=== PATIENT | male | born 1950 | race Caucasian/White ===

== ENCOUNTER 2018-11-05 11:16 | Emergency (ER) | payer MEDICARE ==
[~2018-11-05] VITALS: Ht 170.2 cm; Wt 59.9 kg
[2018-11-05] MEDS ORDERED: LOSARTAN POTASS50 MG PO (12:03)
[2018-11-05] MEDS ORDERED: Lisinopril2.5 MG PO (12:05)
[2018-11-05] MEDS ORDERED: Fish Oil 10001000 MG PO (12:06)
[2018-11-05 12:48] LABS: BASOPHILS ABSOLUTE AUTO 0.04 K/mm3 (0.00-0.23); BASOPHILS PERCENT AUTO 1 % (0-2); EOSINOPHILS ABSOLUTE AUTO 0.07 K/mm3 (0.00-0.68); EOSINOPHILS PERCENT AUTO 1 % (0-6); Hematocrit 44.7 % (37.0-53.0); Hemoglobin 14.9 g/dL (13.5-17.5); IMMATURE GRAN ABSOLUTE AUTO 0.01 K/mm3 (0.00-0.10); IMMATURE GRAN PERCENT AUTO 0 % (0-1); LYMPHOCYTES ABSOLUTE AUTO 1.24 K/mm3 (0.84-5.20); LYMPHOCYTES PERCENT AUTO 22 % (21-46); MONOCYTES ABSOLUTE AUTO 0.51 K/mm3 (0.16-1.47); MONOCYTES PERCENT AUTO 9 % (4-13); Mean Corpuscular HGB 29.8 pg (26.0-34.0); Mean Corpuscular HGB Conc 33.3 g/dL (31.5-36.5); Mean Corpuscular Volume 89 fL (80-100); Mean Platelet Volume 9.1 fL (9.1-12.4); NEUTROPHILS ABSOLUTE AUTO 3.67 K/mm3 (1.96-9.15); NEUTROPHILS PERCENT AUTO 66 % (41-73); Platelet Count 296 K/mm3 (150-400); RDW Coefficient Variation 14.4 % (11.7-14.2); RDW Standard Deviation 47.1 fL (35.1-46.3); White Blood Cell Count 5.54 K/mm3 (4.00-11.30)
[2018-11-05 13:23] LABS: Alanine Aminotransfer (ALT/SGP 40 U/L (12-78); Albumin, Blood 4.1 g/dL (3.4-5.0); Albumin/Globulin Ratio 1.2 (0.8-1.8); Alk Phos 86 U/L (50-136); Anion Gap 5 mmol/L (6-16); Aspartate Aminotrans (AST/SGOT 23 U/L (12-37); Bilirubin, Total 0.4 mg/dL (0.1-1.0); Blood Urea Nitrogen 16 mg/dL (8-24); Bun/Creatinine Ratio 15.4 (12.0-20.0); CO2, Blood 27 mmol/L (21-32); Calcium, Blood 9.5 mg/dL (8.5-10.1); Chloride, Blood 108 mmol/L (98-108); Creatinine, Blood 1.04 mg/dL (0.60-1.20); Globulin, Blood 3.5 g/dL (2.2-4.0); Glomerular Filtration Rate >60 (60-); Glucose, Blood 93 mg/dL (70-99); Potassium, Blood 3.9 mmol/L (3.5-5.5); Sodium, Blood 140 mmol/L (136-145); Total Protein, Blood 7.6 g/dL (6.4-8.2)
== END 2018-11-05 13:47 | disposition home or self-care (01) ==
LOC: ER 11:16
PROVIDERS: Physician Assistant
DX: J02.9 Acute pharyngitis, unspecified (principal); H61.21 Impacted cerumen, right ear; Z85.819 Personal history of malignant neoplasm of unspecified site of lip, oral cavity, and pharynx; Z87.891 Personal history of nicotine dependence; Z88.8 Allergy status to other drugs, medicaments and biological substances; Z88.0 Allergy status to penicillin; Z79.899 Other long term (current) drug therapy
CPT/HCPCS: 36415; 70491; 80053; 85025; 99284-25; Q9967

== ENCOUNTER 2018-12-31 09:31 | Day surgery (SDC) | payer MEDICARE ==
[~2018-12-31] VITALS: Ht 170.2 cm; Wt 60.5 kg
[~2018-12-31 09:31] MED LIST: Fish Oil 10001000 MG PO; LOSARTAN POTASS50 MG PO; Lisinopril2.5 MG PO
--- NOTE | 2018-12-31 11:34 | NUR ---
12/31/18 1134 Denise Dumont ON PHONE TALKING TO DR. LIANG REGARDING SPECIMEN FOR FROZEN SECTIONS.
--- NOTE | 2018-12-31 12:52 | NUR ---
12/31/18 [id number] Kartik Robertson S PATIENT STATES HIS THROAT IS SORE BUT NO NEED FOR PAIN MEDS AT THIS TIME. MEDICATED FOR NAUSEA AND PATIENT STATES HIS NAUSEA IS BETTER NOW. VSS
[2019-01-10 15:22] LABS: Performing Lab SYMBIODX; Test Name TISSUE BLOCK
[2019-01-17 08:14] LABS: Result SEE PATHOTH RESULTS
== END 2018-12-31 13:17 | disposition home or self-care (01) ==
LOC: ORSCSDS 09:31
PROVIDERS: Otolaryngology
PROC: 0CBM8ZX Excision of Pharynx, Via Natural or Artificial Opening Endoscopic, Diagnostic (ICD-10-PCS; principal; 2018-12-31 11:30)
DX: C01 Malignant neoplasm of base of tongue (principal); I10 Essential (primary) hypertension; J44.9 Chronic obstructive pulmonary disease, unspecified; E03.9 Hypothyroidism, unspecified; Z87.891 Personal history of nicotine dependence; E78.5 Hyperlipidemia, unspecified; K21.9 Gastro-esophageal reflux disease without esophagitis; Z79.899 Other long term (current) drug therapy
CPT/HCPCS: 88305; 88331; 88360; J0330; J1100; J1885; J2001; J2405; J2704; J3010; J7120

== ENCOUNTER 2019-04-11 10:27 | Day surgery (SDC) | payer MEDICARE ==
[~2019-04-11] VITALS: Ht 170.2 cm; Wt 55.9 kg
[~2019-04-11 10:27] MED LIST changes: +ATOR20 PO; +CALCIUM CARBON500 M1 PO; +KEYTRUDA100 MG/4 M IV; +LEVSOD75 PO; +MULTI-VITAMIN1 EAC2 PO; +Norco 7.5-3251 EACH PO; +OMEP20ER PO; +Omega 3 Fish O1 EACH PO; +Triamcinolone A15 G2 EXT
--- NOTE | 2019-04-11 12:53 | NUR ---
History, Chart, Medications and Allergies reviewed before start of procedure. Patient confirms NPO status and agrees with scheduled surgery. Patient States Post-Procedure ride home has been arranged with his partner, Leighton Blas.
[2019-04-11] MEDS ORDERED: Fentanyl1 EACH TOP (13:00)
--- NOTE | 2019-04-11 13:11 | NUR ---
SPOKE TO DR. GAYTAN ABOUT PATIENT'S ORDER FOR ANCEF AND HX OF PENICILLIN ALLERGY AND ITCHING REACTION. DR GAYTAN VERIFIED TO PROCEED WITH ANCEF PRE-OP.
--- NOTE | 2019-04-11 13:20 | NUR ---
04/11/19 1320 Marcin Kern History, Chart, Medications and Allergies reviewed before start of procedure.MONITOR INTACT WITH CONTINUOUS PULSE OXIMETRY AND INTERMITTENT BP.3-LEAD EKG REVIEWED WITH PHYSICIAN PRIOR TO START OF PROCEDURE.O2 VIA N/C INTACT THROUGHOUT SEDATION/PROCEDURE. See Anesthesia record.
--- NOTE | 2019-04-11 13:27 | NUR ---
PATIENT STATES HE LEFT HIS DENTURES AT HOME TODAY.
--- NOTE | 2019-04-11 14:48 | NUR ---
Patient up to Ambulate independently. Gait steady. Dressing to procedure site clean, dry, intact with no visible drainage, swelling, erythema or bruising noted. Patient States Post-Procedure ride home has been arranged. Discharged via wheelchair to private car for ride home. Discharge instructions reviewed with patient. Patient verbalizes understanding. Copy given to patient to take home. ALL BELONINGS SENT HOME WITH PATIENT.
== END 2019-04-11 23:25 | disposition home or self-care (01) ==
LOC: ORSCMMR 10:27
PROVIDERS: Surgery
PROC: 0DH63UZ Insertion of Feeding Device into Stomach, Percutaneous Approach (ICD-10-PCS; principal; 2019-04-11 13:00)
DX: R13.10 Dysphagia, unspecified (principal); C14.0 Malignant neoplasm of pharynx, unspecified; I10 Essential (primary) hypertension; E78.5 Hyperlipidemia, unspecified; Z87.891 Personal history of nicotine dependence; Z79.899 Other long term (current) drug therapy
CPT/HCPCS: C1769; J0690; J2704; J7120

== ENCOUNTER 2019-07-09 08:45 | Day surgery (SDC) | payer MEDICARE ==
[~2019-07-09] VITALS: Ht 170.2 cm; Wt 53.2 kg
[~2019-07-09 08:45] MED LIST changes: +Fentanyl1 EACH TOP
--- NOTE | 2019-07-09 10:16 | NUR ---
Ambulatory in Day Surgery History, Chart, Medications and Allergies reviewed before start of procedure. Lungs clear T/O to Auscultation. Pre-Op teaching done. Pt verbalizes understanding.
--- NOTE | 2019-07-09 11:34 | NUR ---
07/09/19 1134 Ludmila Trejo ALL COUNTS CORRECT.
--- NOTE | 2019-07-09 12:43 | NUR ---
xrjaswant farah per dr starr. pt to sds
--- NOTE | 2019-07-09 13:09 | NUR ---
PATIENT UP TO BATHROOM AFTER FIRST SET OF VSS. PATIENT REQUESTING TO HAVE IV FLUIDS FINISHED BEFORE DISCHARGING HIM. FLUID RATE IS WIDE OPEN TO GRAVITY. CONTINUES TO SAY NOT MUCH ABOUT PAIN AND DENIES NEED FOR RX
--- NOTE | 2019-07-09 13:23 | NUR ---
FLUID FINISHED PATIENT UP TO BATHROOM AT THIS TIME.
--- NOTE | 2019-07-09 13:32 | NUR ---
Discharge instructions reviewed with patient. Patient verbalizes understanding. Copy given to patient to take home. Patient States Post-Procedure ride home has been arranged. Discharged via wheelchair to private car for ride home.
== END 2019-07-09 23:02 | disposition home or self-care (01) ==
LOC: ORSCMMR 08:45 → ORD 11:00 → ORSCMMR 11:00
PROVIDERS: Surgery
PROC: 05H533Z Insertion of Infusion Device into Right Subclavian Vein, Percutaneous Approach (ICD-10-PCS; principal; 2019-07-09 11:00)
PROC: B5161ZA Fluoroscopy of Right Subclavian Vein using Low Osmolar Contrast, Guidance (ICD-10-PCS; principal; 2019-07-09 11:00)
DX: C32.1 Malignant neoplasm of supraglottis (principal); C01 Malignant neoplasm of base of tongue; I10 Essential (primary) hypertension; J44.9 Chronic obstructive pulmonary disease, unspecified; Z87.891 Personal history of nicotine dependence; K21.9 Gastro-esophageal reflux disease without esophagitis; E03.9 Hypothyroidism, unspecified; E78.5 Hyperlipidemia, unspecified; Z79.899 Other long term (current) drug therapy
CPT/HCPCS: 77001; C1788; J1100; J1642; J1885; J2405; J2704; J3010; J7120

== ENCOUNTER 2020-03-14 11:19 | Emergency (ER) | payer MEDICARE ==
[~2020-03-14] VITALS: Ht 170.2 cm; Wt 53.5 kg
[2020-03-14] MEDS ORDERED: Cleocin HCl300 MG PO (16:34)
== END 2020-03-14 17:10 | disposition home or self-care (01) ==
LOC: ER 11:19
DX: J02.9 Acute pharyngitis, unspecified (principal); J44.9 Chronic obstructive pulmonary disease, unspecified; Z87.891 Personal history of nicotine dependence; Z79.899 Other long term (current) drug therapy; Z88.0 Allergy status to penicillin; Z91.030 Bee allergy status
CPT/HCPCS: 70491; 99283-25; A9270; J1642; Q9967

== ENCOUNTER 2020-03-21 09:21 | Emergency (ER) | payer MEDICARE ==
[~2020-03-21] VITALS: Ht 170.2 cm; Wt 53.5 kg
[~2020-03-21 09:21] MED LIST changes: +Cleocin HCl300 MG PO
== END 2020-03-21 10:11 | disposition home or self-care (01) ==
LOC: ER 09:21
DX: K14.6 Glossodynia (principal); Z92.3 Personal history of irradiation; Z92.21 Personal history of antineoplastic chemotherapy; Z79.899 Other long term (current) drug therapy; Z85.818 Personal history of malignant neoplasm of other sites of lip, oral cavity, and pharynx; Z88.0 Allergy status to penicillin; Z91.030 Bee allergy status; Z88.8 Allergy status to other drugs, medicaments and biological substances; Z87.891 Personal history of nicotine dependence
CPT/HCPCS: 99283

== ENCOUNTER 2020-05-03 03:53 | Emergency (ER) | payer MEDICARE ==
[~2020-05-03] VITALS: Ht 180.3 cm; Wt 61.2 kg
[2020-05-03 04:32] LABS: BASOPHILS ABSOLUTE AUTO 0.04 K/mm3 (0.00-0.23); BASOPHILS PERCENT AUTO 0 % (0-2); EOSINOPHILS ABSOLUTE AUTO 0.05 K/mm3 (0.00-0.68); EOSINOPHILS PERCENT AUTO 0 % (0-6); Hemoglobin 11.4 g/dL (13.5-17.5); IMMATURE GRAN ABSOLUTE AUTO 0.07 K/mm3 (0.00-0.10); IMMATURE GRAN PERCENT AUTO 1 % (0-1); LYMPHOCYTES ABSOLUTE AUTO 0.59 K/mm3 (0.84-5.20); LYMPHOCYTES PERCENT AUTO 5 % (21-46); MONOCYTES ABSOLUTE AUTO 0.97 K/mm3 (0.16-1.47); MONOCYTES PERCENT AUTO 7 % (4-13); Mean Corpuscular HGB 28.4 pg (26.0-34.0); Mean Corpuscular HGB Conc 31.7 g/dL (31.5-36.5); Mean Corpuscular Volume 90 fL (80-100); Mean Platelet Volume 8.8 fL (9.1-12.4); NEUTROPHILS ABSOLUTE AUTO 11.45 K/mm3 (1.96-9.15); NEUTROPHILS PERCENT AUTO 87 % (41-73); Platelet Count 599 K/mm3 (150-400); RDW Coefficient Variation 12.8 % (11.7-14.2); RDW Standard Deviation 42.3 fL (35.1-46.3); Red Blood Cell Count 4.02 M/mm3 (4.30-5.90); White Blood Cell Count 13.17 K/mm3 (4.00-11.30)
[2020-05-03 04:50] LABS: Alanine Aminotransfer (ALT/SGP 48 U/L (12-78); Albumin, Blood 2.7 g/dL (3.4-5.0); Albumin/Globulin Ratio 0.6 (0.8-1.8); Alk Phos 96 U/L (50-136); Anion Gap 7 mmol/L (6-16); Aspartate Aminotrans (AST/SGOT 22 U/L (12-37); Bilirubin, Total 0.3 mg/dL (0.1-1.0); Blood Urea Nitrogen 73 mg/dL (8-24); Bun/Creatinine Ratio 57.9 (12.0-20.0); CO2, Blood 31 mmol/L (21-32); Calcium, Blood 9.6 mg/dL (8.5-10.1); Chloride, Blood 101 mmol/L (98-108); Creatinine, Blood 1.26 mg/dL (0.60-1.20); Globulin, Blood 4.8 g/dL (2.2-4.0); Glomerular Filtration Rate >60 (60-); Glucose, Blood 142 mg/dL (70-99); Potassium, Blood 3.6 mmol/L (3.5-5.5); Sodium, Blood 139 mmol/L (136-145); Total Protein, Blood 7.5 g/dL (6.4-8.2); Troponin I <0.015 ng/mL (0.000-0.040)
== END 2020-05-03 07:43 | disposition home or self-care (01) ==
LOC: ER 03:53
PROVIDERS: Emergency Medicine
DX: R06.02 Shortness of breath (principal); R09.89 Other specified symptoms and signs involving the circulatory and respiratory systems; J44.9 Chronic obstructive pulmonary disease, unspecified; Z88.8 Allergy status to other drugs, medicaments and biological substances; Z88.0 Allergy status to penicillin; Z91.030 Bee allergy status; Z79.899 Other long term (current) drug therapy
CPT/HCPCS: 31720; 71046; 80053; 83880; 84484; 85025; 96374; 99283-25; A9270; J3010

== ENCOUNTER 2020-05-08 07:41 | Inpatient (IN) | payer MEDICARE ==
[~2020-05-08] VITALS: Ht 172.7 cm; Wt 52.2 kg
[2020-05-08 08:46] LABS: BASOPHILS ABSOLUTE AUTO 0.03 K/mm3 (0.00-0.23); BASOPHILS PERCENT AUTO 0 % (0-2); EOSINOPHILS PERCENT AUTO 0 % (0-6); Hematocrit 33.7 % (37.0-53.0); Hemoglobin 10.9 g/dL (13.5-17.5); IMMATURE GRAN ABSOLUTE AUTO 0.13 K/mm3 (0.00-0.10); IMMATURE GRAN PERCENT AUTO 1 % (0-1); LYMPHOCYTES ABSOLUTE AUTO 0.47 K/mm3 (0.84-5.20); LYMPHOCYTES PERCENT AUTO 3 % (21-46); MONOCYTES ABSOLUTE AUTO 1.16 K/mm3 (0.16-1.47); MONOCYTES PERCENT AUTO 8 % (4-13); Mean Corpuscular HGB 27.9 pg (26.0-34.0); Mean Corpuscular HGB Conc 32.3 g/dL (31.5-36.5); Mean Corpuscular Volume 86 fL (80-100); NEUTROPHILS ABSOLUTE AUTO 13.43 K/mm3 (1.96-9.15); NEUTROPHILS PERCENT AUTO 88 % (41-73); Platelet Count 518 K/mm3 (150-400); RDW Standard Deviation 40.9 fL (35.1-46.3); White Blood Cell Count 15.22 K/mm3 (4.00-11.30)
[2020-05-08 09:06] LABS: Alanine Aminotransfer (ALT/SGP 72 U/L (12-78); Albumin, Blood 2.5 g/dL (3.4-5.0); Albumin/Globulin Ratio 0.5 (0.8-1.8); Alk Phos 100 U/L (50-136); Anion Gap 6 mmol/L (6-16); Aspartate Aminotrans (AST/SGOT 42 U/L (12-37); Bilirubin, Total 0.2 mg/dL (0.1-1.0); Blood Urea Nitrogen 20 mg/dL (8-24); Bun/Creatinine Ratio 32.8 (12.0-20.0); CO2, Blood 30 mmol/L (21-32); Chloride, Blood 92 mmol/L (98-108); Creatinine, Blood 0.61 mg/dL (0.60-1.20); Globulin, Blood 4.8 g/dL (2.2-4.0); Glomerular Filtration Rate >60 (60-); Glucose, Blood 145 mg/dL (70-99); Potassium, Blood 3.7 mmol/L (3.5-5.5); Sodium, Blood 128 mmol/L (136-145); Total Protein, Blood 7.3 g/dL (6.4-8.2)
[2020-05-08] MEDS ORDERED: OXYC10TA19 PO (11:41)
== END 2020-05-14 04:55 | DRG 951 ==
LOC: ER 07:41 → MEDS 07:42
PROVIDERS: Emergency Medicine; ADMIT Internal Medicine
DX: Z51.5 Encounter for palliative care (principal); E87.1 Hypo-osmolality and hyponatremia; E44.0 Moderate protein-calorie malnutrition; Z68.1 Body mass index [BMI] 19.9 or less, adult; R65.10 Systemic inflammatory response syndrome (SIRS) of non-infectious origin without acute organ dysfunction; Z66 Do not resuscitate; G89.3 Neoplasm related pain (acute) (chronic); C02.9 Malignant neoplasm of tongue, unspecified; Z92.21 Personal history of antineoplastic chemotherapy; E03.9 Hypothyroidism, unspecified; K21.9 Gastro-esophageal reflux disease without esophagitis; E78.5 Hyperlipidemia, unspecified; T45.1X5A Adverse effect of antineoplastic and immunosuppressive drugs, initial encounter; Z87.891 Personal history of nicotine dependence; Z92.3 Personal history of irradiation; I10 Essential (primary) hypertension; Z90.49 Acquired absence of other specified parts of digestive tract; Z88.0 Allergy status to penicillin; Z88.8 Allergy status to other drugs, medicaments and biological substances; Z79.899 Other long term (current) drug therapy; C32.9 Malignant neoplasm of larynx, unspecified; K12.31 Oral mucositis (ulcerative) due to antineoplastic therapy
CPT/HCPCS: 80053; 85025; 96374; 96375; 96376; 99285-25; A9270; C9113; G0378; J1170; J1200; J2060; J2405; J7120